=== PATIENT | female | born 1945 | race Caucasian/White ===

== ENCOUNTER 2021-04-10 18:18 | Emergency (ER) | payer MEDICARE, OTHER ==
[~2021-04-10] VITALS: Ht 154.9 cm; Wt 78.9 kg
--- NOTE | 2021-04-10 18:42 | NUR ---
BIB FAMILY C/O R EYE BROW BUMP AND R SHOULDER PAIN S/P TRIP AND FALL."SHE FELL HEADFIRST AND SHE JUST GOT R SHOULDER SURGERY SEPTEMBER 2020". RIGHT HAND LACERATION NOTED.AOX4, NO SOB NOTED, RR EVEN AND UNLABORED. STABLE ON RA.SAFETY PRECAUTIONS INITIATED PER PROTOCOL
--- NOTE | 2021-04-10 18:47 | NUR ---
X-RAY AT BEDSIDE
[2021-04-10] MEDS ORDERED: NAPR-1192 PO (19:28)
--- NOTE | 2021-04-10 19:36 | NUR ---
Patient discharged to home in stable condition. Written and verbal after care instructions given. Patient verbalizes understanding of instruction.
[2021-04-10 20:01] VITALS: BP 173/76
== END 2021-04-10 19:40 | disposition home or self-care (01) ==
LOC: ER 18:28
DX: S00.03XA Contusion of scalp, initial encounter (principal); M25.511 Pain in right shoulder; I10 Essential (primary) hypertension; M19.90 Unspecified osteoarthritis, unspecified site; Z79.899 Other long term (current) drug therapy; W01.0XXA Fall on same level from slipping, tripping and stumbling without subsequent striking against object, initial encounter; Y93.89 Activity, other specified; Y92.89 Other specified places as the place of occurrence of the external cause; Y99.8 Other external cause status
CPT/HCPCS: 70450-TC; 72125-TC; 73030-TC